=== PATIENT | male | born 1975 | race American Indian/Alaskan Native ===

== ENCOUNTER 2018-10-04 21:29 | Emergency (ER) | payer MEDICARE, OTHER ==
[2018-10-04 21:49] VITALS: BP 153/95
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
--- NOTE | 2018-10-04 22:54 | XRay Report ---
PROCEDURE: XR SPINE LUMBOSACRAL 2-3V TECHNIQUE: Lumbar spine radiographs, AP and lateral views. HISTORY: low back pain COMPARISONS: None . FINDINGS: Alignment: Normal . Vertebral body heights/Disk spaces: Normal . Fracture(s): None . Facets: Normal . Bone mineralization: Normal . IMPRESSION: Normal Examination . This document is electronically signed by Liane Elizabeth DO., October 04 2018 10:53:05 PM ET
--- NOTE | 2018-10-04 22:56 | XRay Report ---
PROCEDURE: XR SPINE CERVICAL 2-3V TECHNIQUE: Cevical spine, AP, lateral and odontoid views. HISTORY: posterior neck pain COMPARISONS: None . FINDINGS: Prevertebral soft tissues: Normal . Alignment: Normal . Vertebral body heights/Disk spaces: Normal . Fracture(s): None . Facets: Normal . Bone mineralization: Normal . IMPRESSION: Normal Examination . This document is electronically signed by Liane Elizabeth DO., October 04 2018 10:54:16 PM ET
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
== END 2018-10-05 00:43 | disposition home or self-care (01) ==
LOC: ED 21:29
DX: S39.012A Strain of muscle, fascia and tendon of lower back, initial encounter (principal); M54.2 Cervicalgia; M79.605 Pain in left leg; M25.552 Pain in left hip; Z91.013 Allergy to seafood; Z87.891 Personal history of nicotine dependence; V89.2XXA Person injured in unspecified motor-vehicle accident, traffic, initial encounter; Y93.89 Activity, other specified; Y92.89 Other specified places as the place of occurrence of the external cause; Y99.8 Other external cause status
CPT/HCPCS: 72040; 72100; 99283